=== PATIENT | male | born 1970 | race Caucasian/White ===

== ENCOUNTER 2017-09-03 14:55 | Outpatient (CLI) | payer OTHER ==
[2017-09-03 15:38] LABS: BASOPHILS % 0.7 (0.0-1.5); EOSINOPHILS % 3.8 % (0.0-6.8); MEAN CORPUSCULAR HEMOGLOBIN 30.8 pg (28.0-34.0); MEAN CORPUSCULAR VOLUME 89.7 fl (80.0-100.0); NEUTROPHILS # 5.8 # k/uL (1.4-7.7)
[2017-09-03 15:59] LABS: eGFR (African) > 60; eGFR (Non-African) > 60
== END 2017-09-03 14:56 ==
LOC: LAB 14:55
PROVIDERS: ATTEND Family Medicine
DX: R55 Syncope and collapse (principal)
CPT/HCPCS: 36415; 80053; 85025